=== PATIENT | male | born 1980 | race Two or more races ===

== ENCOUNTER 2017-08-04 08:22 | Inpatient (IN) | payer BC ==
[~2017-08-04] VITALS: Ht 180.3 cm; Wt 115.0 kg
[~2017-08-04 08:22] MED LIST: LISI10TA4 PO
[2017-08-04] MEDS ORDERED: LR 1,000 ML IV ONE (08:30)
[2017-08-04] MEDS ORDERED: CIPROFLOXACIN 400 MG in APPROPRIATE DILUENT 1 EA IV ONE (09:45)
[2017-08-04] MEDS ORDERED: LIDOCAINE 2% INJ 100 MG/5 ML SDV (FOR ANES.) As Ordered ONE (11:25)
[2017-08-04] MEDS ORDERED: ROCURONIUM BROMIDE 50 MG/5 ML VIAL/SYRINGE As Ordered ONE ×2 (11:25→14:31)
[2017-08-04] MEDS ORDERED: PROPOFOL 200 MG/20 ML VIAL As Ordered ONE (11:25)
[2017-08-04] MEDS ORDERED: dexameTHASONE 4 MG/ML 1ML VIAL (J1100) As Ordered ONE (11:26)
[2017-08-04] MEDS ORDERED: MIDAZOLAM INJ 2 MG/2 ML VIAL (J2250) As Ordered ONE (11:28)
[2017-08-04] MEDS ORDERED: fentaNYL 100 MCG/2 ML INJECTION (J3010) As Ordered ONE ×3 (11:28→13:03)
[2017-08-04] MEDS ORDERED: MANNITOL 25% 12.5 GM/50 ML VIAL (J2150) As Ordered ONE (11:43)
[2017-08-04] MEDS ORDERED: GLYCOPYRROLATE INJ 0.2 MG/ML 2 ML VIAL As Ordered ONE (13:11)
[2017-08-04] MEDS ORDERED: ESMOLOL INJ 100MG/10ML VIAL As Ordered ONE (13:55)
[2017-08-04] MEDS ORDERED: HYDROmorphone HCL 2 MG/ML 1ML VIAL (J1170) As Ordered ONE (14:58)
[2017-08-04] MEDS ORDERED: LABETALOL HCL 100 MG/20 ML VIAL As Ordered ONE (15:59)
[2017-08-04] MEDS ORDERED: ONDANSETRON 4MG/2ML VIAL (J2405) As Ordered ONE (17:22)
[2017-08-04] MEDS ORDERED: NEOSTIGMINE 10 MG/10 ML VIAL (J2710) As Ordered ONE (17:26)
[2017-08-04] MEDS ORDERED: PERCOCET 5MG/325MG TAB PO PRN (18:30)
[2017-08-04] MEDS ORDERED: HYDROmorphone HCL 1 MG/ML SYRINGE (J1170) IV PRN (18:30)
[2017-08-04] MEDS ORDERED: MORPHINE 4 MG/ML 1ML SYRINGE IV PRN (18:30)
[2017-08-04] MEDS: KCL 20MEQ IN D5/0.45NS 1000ML 1,000 ML IV SCH (18:30)
[2017-08-04] MEDS ORDERED: ONDANSETRON 4MG/2ML VIAL (J2405) IV PRN ×2 (18:30)
[2017-08-04] MEDS ORDERED: LR 1,000 ML IV SCH (18:30)
[2017-08-04] MEDS ORDERED: fentaNYL 100 MCG/2 ML INJECTION (J3010) IV PRN (18:30)
[2017-08-04 18:32] LABS: MEAN CORPUSCULAR HEMOGLOBIN 28.6 pg (27.0-33.0); MEAN CORPUSCULAR HGB CONC 33.3 g/dl (32.0-36.5); MEAN CORPUSCULAR VOLUME 85.9 fl (80.0-96.0); RED CELL DISTRIBUTION WIDTH 12.6 % (11.5-14.5); WHITE BLOOD COUNT 16.8 K/mm3 (4.0-10.0)
[2017-08-04] MEDS ORDERED: KETOROLAC 30 MG/ML VIAL (J1885) As Ordered ONE (18:35)
[2017-08-04] MEDS: KETOROLAC 30 MG/ML VIAL (J1885) IV SCH (18:35)
[2017-08-04] MEDS: oxyCODONE 5MG TAB PO PRN (18:57)
[2017-08-04 19:07] LABS: ANION GAP 11 MEQ/L (8-16); BLOOD UREA NITROGEN 27 MG/DL (7-18); CALCIUM LEVEL 8.8 MG/DL (8.5-10.1); CARBON DIOXIDE LEVEL 24 MEQ/L (21-32); CHLORIDE LEVEL 103 MEQ/L (98-107); CREATININE FOR GFR 1.24 MG/DL (0.70-1.30); GLOMERULAR FILTRATION RATE > 60.0 (>60); GLUCOSE, FASTING 169 MG/DL (70-105); POTASSIUM SERUM 4.8 MEQ/L (3.5-5.1); SODIUM LEVEL 138 MEQ/L (136-145)
[2017-08-04 19:30] VITALS: BP 134/78
[2017-08-04 20:00] VITALS: BP 134/80
[2017-08-04 20:30] VITALS: BP 134/72
[2017-08-04 21:30] VITALS: BP 116/60
[2017-08-04] MEDS: ACETAMINOPHEN 650MG ER TAB (TYLENOL ARTHRITIS) PO SCH (22:25)
[2017-08-04 22:30] VITALS: BP 118/60
[2017-08-04 23:30] VITALS: BP 120/58
[2017-08-05 00:30] VITALS: BP 109/59
[2017-08-05 04:00] VITALS: BP 122/66
[2017-08-05] MEDS: oxyCODONE 5MG TAB PO PRN (04:09)
[2017-08-05] MEDS: KCL 20MEQ IN D5/0.45NS 1000ML 1,000 ML IV SCH ×2 (04:10→14:27)
[2017-08-05] MEDS: CIPROFLOXACIN 500 MG TAB PO SCH ×2 (05:28→17:00)
[2017-08-05] MEDS: ACETAMINOPHEN 650MG ER TAB (TYLENOL ARTHRITIS) PO SCH ×3 (05:28→22:09)
[2017-08-05 07:29] LABS: MEAN CORPUSCULAR HEMOGLOBIN 29.1 pg (27.0-33.0); MEAN CORPUSCULAR HGB CONC 33.5 g/dl (32.0-36.5); MEAN CORPUSCULAR VOLUME 86.6 fl (80.0-96.0); RED CELL DISTRIBUTION WIDTH 12.7 % (11.5-14.5); WHITE BLOOD COUNT 11.8 K/mm3 (4.0-10.0)
[2017-08-05 07:35] VITALS: BP 129/61
[2017-08-05 07:51] LABS: ANION GAP 9 MEQ/L (8-16); BLOOD UREA NITROGEN 29 MG/DL (7-18); CALCIUM LEVEL 8.4 MG/DL (8.5-10.1); CARBON DIOXIDE LEVEL 25 MEQ/L (21-32); CHLORIDE LEVEL 103 MEQ/L (98-107); CREATININE FOR GFR 1.24 MG/DL (0.70-1.30); GLOMERULAR FILTRATION RATE > 60.0 (>60); GLUCOSE, FASTING 139 MG/DL (70-105); POTASSIUM SERUM 4.4 MEQ/L (3.5-5.1); SODIUM LEVEL 137 MEQ/L (136-145)
[2017-08-05] MEDS: PANTOPRAZOLE 40MG INJ (PROTONIX) (C9113) IV SCH (09:05)
[2017-08-05] MEDS: LISINOPRIL 10 MG TAB PO SCH (09:06)
[2017-08-05 11:24] VITALS: BP 133/85
[2017-08-05] MEDS: KETOROLAC 30 MG/ML VIAL (J1885) IV SCH ×2 (11:25→18:34)
[2017-08-05 15:08] VITALS: BP 113/57
[2017-08-05 20:00] VITALS: BP 122/64
[2017-08-06] VITALS: BP 123/66
[2017-08-06] MEDS: KCL 20MEQ IN D5/0.45NS 1000ML 1,000 ML IV SCH (02:48)
[2017-08-06 04:00] VITALS: BP 130/76
[2017-08-06] MEDS: CIPROFLOXACIN 500 MG TAB PO SCH (06:00)
[2017-08-06] MEDS: ACETAMINOPHEN 650MG ER TAB (TYLENOL ARTHRITIS) PO SCH (06:00)
[2017-08-06 07:03] LABS: MEAN CORPUSCULAR HEMOGLOBIN 29.5 pg (27.0-33.0); MEAN CORPUSCULAR HGB CONC 34.1 g/dl (32.0-36.5); MEAN CORPUSCULAR VOLUME 86.4 fl (80.0-96.0); RED CELL DISTRIBUTION WIDTH 12.7 % (11.5-14.5); WHITE BLOOD COUNT 8.1 K/mm3 (4.0-10.0)
[2017-08-06 07:16] LABS: ANION GAP 5 MEQ/L (8-16); BLOOD UREA NITROGEN 22 MG/DL (7-18); CALCIUM LEVEL 8.3 MG/DL (8.5-10.1); CARBON DIOXIDE LEVEL 30 MEQ/L (21-32); CHLORIDE LEVEL 106 MEQ/L (98-107); CREATININE FOR GFR 1.13 MG/DL (0.70-1.30); GLOMERULAR FILTRATION RATE > 60.0 (>60); GLUCOSE, FASTING 97 MG/DL (70-105); POTASSIUM SERUM 4.2 MEQ/L (3.5-5.1); SODIUM LEVEL 141 MEQ/L (136-145)
[2017-08-06 08:35] VITALS: BP 136/74
[2017-08-06 08:40] VITALS: BP 136/74
[2017-08-06] MEDS: LISINOPRIL 10 MG TAB PO SCH (08:40)
[2017-08-06] MEDS: PANTOPRAZOLE 40MG INJ (PROTONIX) (C9113) IV SCH (08:40)
[2017-08-06 10:12] LABS: SOURCE, BODY FLUID CREATININE OTHER
[2017-08-06] MEDS ORDERED: CIPR500T3 PO (10:39)
[2017-08-06] MEDS ORDERED: TYLE650T35 PO (10:39)
--- NOTE | 2017-08-06 11:45 | DSES ---
DATE OF ADMISSION: 08/04/2017 DATE OF DISCHARGE: DATE OF SURGERY 08/04/2017 ADMISSION DIAGNOSIS: Left complex renal cyst. DISCHARGE DIAGNOSIS: Left complex renal cyst. SURGERY PERFORMED: Robotic assisted left partial nephrectomy. SURGEON: Dr. Vernon Hays ADMITTING SURGEON: Dr. Vernon Hays DISCHARGING SURGEON: Dr. Vernon Hays HISTORY OF PRESENT ILLNESS: 37-year-old male patient who had an incidental finding of a left complex renal cyst on a CT scan without any contrast. For this reason, he has consented for a left robotic partial nephrectomy. We performed this procedure on 08/04/2017. POST HOSPITALIZATION COURSE: The patient did very well. By postoperative day #1, he was tolerating a regular. He was doing incentive spirometry without any difficulty. His white blood count was normal. His urine output was clear urine output was clear urine, above 2 liters a day. For this reason, we discontinued Cortes catheter and he voided very well. He tolerated a regular diet and ambulated very well. By postoperative day #2, the patient did very well. He tolerated a regular diet, was voiding very well and ambulated very well. The pain was controlled with oral pain medication. The DEMETRIO fluid was sent for creatinine check and it was 1.0, same as serum. For this reason, we discontinued the DEMETRIO. The DEMETRIO output was only 140 mL per 24 hours in the last 24 hours. The patient requested to go home and we agreed upon this. The patient will go home with antibiotics, ciprofloxacin 500 mg one tablet every 12 hours for ten days, acetaminophen Tylenol Arthritis 650 mg one tablet by mouth every 8 hours for abdominal pain. He will take his Lisinopril. No aspirin. No blood thinners. He cannot carry heavy weight lifting above [address] for 2 weeks. He will followup at [facility] in 2 weeks. There were no complications from the surgery or hospitalization.
--- NOTE | 2017-08-07 09:42 | RO ---
DATE OF PROCEDURE: 08/04/2017 PREPROCEDURE DIAGNOSIS: Left complex renal cyst. POSTPROCEDURE DIAGNOSIS: Left complex renal cyst. SURGERY: Robotic assisted left partial nephrectomy. SURGEON: Vernon Hays MD CASTING HOUSE LABORER: Carmenza Knox NP ANESTHESIA: General. ESTIMATED BLOOD LOSS (EBL): 150 mL. COMPLICATIONS: None. HISTORY OF PRESENT ILLNESS: 37-year-old male patient that had a CT scan of the abdomen and pelvis that shows a complex renal cyst on the left side, upper pole for about 3 cm in diameter. For this reason, he has elected for robotic assisted left partial nephrectomy and has consented for this. PROCEDURE DESCRIPTION: In a patient under general anesthesia with a Cortes catheter draining the bladder, #16 Mexican to gravity, and an orogastric tube, we positioned the patient in a decubitolateral position with the left side up and the right side down, secured to the bed with faulkner bags and straps. We then prepped and draped the area of concern, which included the abdomen and the left flank. We then proceeded to do, in the midclavicular line, a transverse incision about 2 cm, 4 cm above the umbilicus. Through this incision, we opened the peritoneal cavity, introduced a 12 mm Optic Port balloon trocar, and inflated the balloon to 40 mL; through this trocar we insufflated the abdomen to a maximum pressure of 20 at high flow. Under robotic hand assisted camera, we actively placed the other trocars; one trocar 8 mm metallic trocar in the left subcostal border at the mid clavicular line and the other one in the left iliac fossa in the mid clavicular line 8 cm away from the Optic Port. Between this one and the Optic Port, we placed an 11 mm VersaStep in the midline infraumbilically. Then 2 cm away from the anterior iliac crest we placed a long bariatric 8 mm metallic trocar. We then docked the robot. On the left arm, we used monopolar scissors. On the right arm, we used bipolar PK and the third arm a ProGrasp. We then proceeded to place insufflation to a maximum pressure of 50 at high flow. We then proceeded to actively dissect the line of Toldt and retracting the ascending colon toward the midline. We then identified the gonadal vessel and resected the gonadal vessel up to the renal vein. We dissected the renal vein and renal artery. There was one renal vein and one renal artery. At that moment in time, we opened the perirenal fat and Gerota's capsule to actively expose the parenchyma of the kidney. We took out all the fat and put it into an Endo Catch bag 10 mm in diameter. We then proceeded to do intraoperative ultrasound using the Siklu Pro technology with [place] V[place]. We actively found a complex cyst in the upper pole in the posterior part of the kidney. We had to dissect the entire kidney to mobilize the kidney toward the midline and flip it toward the midline to access the posterior part of the upper pole of the kidney. At that moment in time, with the bulldog, we clamped the artery. Then with monopolar scissors and bipolar PK, we resected the cyst. We then proceeded to resect the cyst base and placed it in separate Endo Catch bags. We then proceeded to fulgurate bleeding vessels and change into needle holders and did a continuous suturing of the capsule to approximate the borders of the resection margins with a V-Loc #2-0 attached to a Hem-o-mary kay at the end of the V-Loc and running it and approximating with sliding Hem-o-mary kay clips every time we had a passage to approximate the borders of the resection in the kidney. Once this was performed, we actually secured the tension with Hem-o-mary kay and then took out the bulldog clamp. The total warm ischemia time was 30 minutes. We then proceeded to actually to place Shubham on top of the resection area and we also secured hemostasis. There were no bleeding vessels. At that moment in time, we took the third arm out and placed a DEMETRIO drain, round drain, to the retroperitoneal area posterior to the kidney. We then took all the instruments and undocked the robot. We then proceeded to extract, through the Optic Port incision, each specimen: 1. Left complex renal cyst base. 2. Left complex renal cyst. 3. Left pericystic fat. We then proceeded to close the incision of the Optic Port in two layers with a UR 6 and #0 Vicryl times four each layer. We then closed the skin with Monocryl subcuticular stitches in a running fashion. We secured the drain to the skin with #3-0 nylon. We placed Mastisol, Steri-Strips, Telfa and Tegaderm on top of each incision site. The patient will pass through recovery with a Cortes catheter to gravity. Once he is tolerating a regular diet and ambulating very well, he will be discharged home. There were no complications during surgery. KENTRELL
== END 2017-08-06 11:25 | disposition home or self-care (01) | DRG 442 ==
LOC: M OR 08:22 → M PED 19:43
PROVIDERS: ADMIT Urology; ATTEND Urology
PROC: 8E0W4CZ Robotic Assisted Procedure of Trunk Region, Percutaneous Endoscopic Approach (ICD-10-PCS; 2017-08-04)
PROC: 0TB14ZZ Excision of Left Kidney, Percutaneous Endoscopic Approach (ICD-10-PCS; principal; 2017-08-04 11:25)
DX: C64.2 Malignant neoplasm of left kidney, except renal pelvis (principal); E66.9 Obesity, unspecified; I10 Essential (primary) hypertension; Z68.35 Body mass index [BMI] 35.0-35.9, adult; Z79.899 Other long term (current) drug therapy